=== PATIENT | male | born 1970 | race Caucasian/White ===

== ENCOUNTER 2017-10-12 12:54 | Emergency (ER) | payer SELFPAY ==
[2017-10-12 13:48] LABS: Basophils # (Auto) 0.1 K/mm3 (0.0-0.1); Basophils % (Auto) 0.9 % (0.0-1.8); Eosinophils # (Auto) 0.2 K/mm3 (0.0-0.4); Eosinophils % (Auto) 3.4 % (0.0-4.3); Hematocrit 43.3 % (35.5-45.6); Hemoglobin 14.7 gm/dl (11.8-15.2); Lymphocytes # (Auto) 1.9 K/mm3 (1.2-5.4); Lymphocytes % (Auto) 29.6 % (13.4-35.0); Mean Corpuscular HGB Conc 34 % (32-34); Mean Corpuscular Hemoglobin 33 pg (28-32); Mean Corpuscular Volume 98 fl (84-94); Monocytes # (Auto) 0.5 K/mm3 (0.0-0.8); Monocytes % (Auto) 6.9 % (0.0-7.3); Platelet Count 173 K/mm3 (140-440); Red Cell Distribution Width 13.9 % (13.2-15.2)
[2017-10-12 14:01] LABS: Calcium 9.5 mg/dL (8.4-10.2)
[2017-10-12] MEDS ORDERED: FIORICET PO ONE (18:09)
--- NOTE | 2017-10-12 18:16 | Emergency Department Report ---
HPI - General Chief Complaint: Psych Time Seen by Provider: 10/12/17 17:29 - HPI HPI: Room 16 The patient is a 46-year-old male presenting with a chief complaint of hallucinations and suicidal ideation. The patient states she has a history of psychosis depression and insomnia who has been off of all medications for one year. The patient states for several months he has had auditory and visual hallucinations but lately they have been worsening and becoming nonstop. The patient's auditory hallucinations includes sounds as well as voices to speak about suicidal thoughts. Patient states he has constantly had suicidal ideation but does not have an active plan. Patient denies actively attempting to hurt himself. The patient states his visual hallucinations includes things shape shifting. The patient states he's had a headache for 1 week Location: Mental status Duration: [See above] Quality: Suicidal Severity: Severe Modifying factors: [see above] Context: [see above] Mode of transportation: [not driving] ED Past Medical Hx - Past Medical History Previous Medical History?: No Hx Hypertension: Yes Hx Psychiatric Treatment: Yes (anxiety) Additional medical history: Myasthenia gravis - Surgical History Past Surgical History?: No Additional Surgical History: thymus gland, aortic valve replacement & mitral valve replacement (mechanical) - Family History Family history: no significant - Social History Smoking Status: Current Every Day Smoker (1/3 pack per day) Substance Use Type: Cocaine ED Review of Systems ROS: Stated complaint: HALLUCINATIONS Other details as noted in HPI Neurological: headache Psychiatric: auditory hallucinations, visual hallucinations, suicidal thoughts Physical Exam - Physical Exam Vital Signs: Vital Signs 10/12/17 10/12/17 13:14 14:30 Temperature 97.5 F L 98.0 F Pulse Rate 74 76 Respiratory 16 16 Rate Blood Pressure 121/72 105/66 O2 Sat by Pulse 96 98 Oximetry Physical Exam: GENERAL: The patient is well-developed well-nourished male lying on stretcher not appearing to be in acute distress. [] HEENT: Normocephalic. Atraumatic. Extraocular motions are intact. Patient has moist mucous membranes. NECK: Supple. No meningitic signs are noted. Trachea midline CHEST/LUNGS: Clear to auscultation. There is no respiratory distress noted. HEART/CARDIOVASCULAR: Regular. There is no tachycardia. There is no gallop rub or murmur. ABDOMEN: Abdomen is soft, nontender. Patient has normal bowel sounds. There is no abdominal distention. SKIN: There is no rash. There is no edema. There is no diaphoresis. NEURO: The patient is awake, alert, and oriented. The patient is cooperative. The patient has no focal neurologic deficits. The patient has normal speech. Cranial nerves II through XII grossly intact, no drift MUSCULOSKELETAL: There is no evidence of acute injury. ED Course Vital Signs 10/12/17 10/12/17 13:14 14:30 Temperature 97.5 F L 98.0 F Pulse Rate 74 76 Respiratory 16 16 Rate Blood Pressure 121/72 105/66 O2 Sat by Pulse 96 98 Oximetry ED Medical Decision Making - Lab Data Result diagrams: 10/12/17 13:22 10/12/17 13:22 Laboratory Tests 10/12/17 10/12/17 10/12/17 13:22 13:22 13:22 WBC RBC Hgb Hct MCV MCH MCHC RDW Plt Count Lymph % (Auto) Swift % (Auto) Eos % (Auto) Baso % (Auto) Lymph # Swift # Eos # Baso # Seg Neutrophils % Seg Neutrophils # Sodium 140 Potassium 4.6 Chloride 102.3 Carbon Dioxide 27 Anion Gap 15 BUN 15 Creatinine 1.4 Estimated GFR 54 BUN/Creatinine Ratio 11 Glucose 83 Calcium 9.5 Salicylates < 0.3 L Acetaminophen < 5.0 L Plasma/Serum Alcohol 10/12/17 10/12/17 13:22 13:22 WBC 6.6 RBC 4.40 Hgb 14.7 Hct 43.3 MCV 98 H MCH 33 H MCHC 34 RDW 13.9 Plt Count 173 Lymph % (Auto) 29.6 Swift % (Auto) 6.9 Eos % (Auto) 3.4 Baso % (Auto) 0.9 Lymph # 1.9 Swift # 0.5 Eos # 0.2 Baso # 0.1 Seg Neutrophils % 59.2 Seg Neutrophils # 3.9 Sodium Potassium Chloride Carbon Dioxide Anion Gap BUN Creatinine Estimated GFR BUN/Creatinine Ratio Glucose Calcium Salicylates Acetaminophen Plasma/Serum Alcohol < 0.01 - Radiology Data Radiology results: report reviewed (ct head), image reviewed (ct head) [facility] [address] [place] [address] Cat Scan Report Signed Patient: WILFRED LAMA MR#: [id number] : 1970 Acct:[id number] Age/Sex: 46 / M ADM Date: 10/12/17 Loc: ED Attending Dr: Ordering Physician: ANYA EUCEDA MD Date of Service: 10/12/17 Procedure(s): CT head/brain wo con Accession Number(s): [id number] cc: ANYA EUCEDA MD FINAL REPORT EXAM: CT HEAD/BRAIN WO CON HISTORY: headache TECHNIQUE: Standard unenhanced CT of the head at 5.0 millimeter axial increments. PRIORS: None. FINDINGS: The ventricular system is normal in size and configuration. There is no evidence for parenchymal volume loss. There is no evidence for mass lesion, mass effect, midline shift, acute intracranial hemorrhage, or acute ischemia/ infarction. No evidence for acute skull fracture is seen. No abnormality in the overlying scalp soft tissues is seen. Visualized paranasal sinuses are clear. IMPRESSION: Negative CT of the head. No acute intracranial process noted. Transcribed By: [facility] Dictated By: SHERRILL OCASIO MD Electronically Authenticated By: SHERRILL OCASIO MD Signed Date/Time: 10/12/171945 DD/ 45 TD/TT: 10/12/171945 - Differential Diagnosis suicidal ideation, Critical care attestation.: If time is entered above; I have spent that time in minutes in the direct care of this critically ill patient, excluding procedure time. ED Disposition Clinical Impression: Suicidal ideation, Auditory hallucinations Disposition: DC/TX-65 PSY HOSP/PSY UNIT Is pt being admited?: No Does the pt Need Aspirin: No Condition: Stable Referrals: PRIMARY CAREMD [Primary Care Provider] - 3-5 Days Time of Disposition: 19:57 (awaiting acceptence)
--- NOTE | 2017-10-12 19:54 | Cat Scan Report ---
FINAL REPORT EXAM: CT HEAD/BRAIN WO CON HISTORY: headache TECHNIQUE: Standard unenhanced CT of the head at 5.0 millimeter axial increments. PRIORS: None. FINDINGS: The ventricular system is normal in size and configuration. There is no evidence for parenchymal volume loss. There is no evidence for mass lesion, mass effect, midline shift, acute intracranial hemorrhage, or acute ischemia/ infarction. No evidence for acute skull fracture is seen. No abnormality in the overlying scalp soft tissues is seen. Visualized paranasal sinuses are clear. IMPRESSION: Negative CT of the head. No acute intracranial process noted.
[2017-10-13 08:08] LABS: Bilirubin,Urine NEG (Negative); Blood,Urine NEG (Negative); Color,Urine Straw (Yellow); Mucus,Urine FEW /HPF; Protein,Urine <15 mg/dL mg/dL (Negative); Urobilinogen,Urine < 2.0 mg/dL (<2.0); WBC,Urine < 1.0 /HPF (0.0-6.0)
[2017-10-13 08:18] LABS: Amphetamine Screen,Urine PRESUMPTIVE NEGATIVE; Benzodiazepines Screen,Urine PRESUMPTIVE NEGATIVE; Cannabinoid Screen,Urine PRESUMPTIVE NEGATIVE; Methadone Screen,Urine PRESUMPTIVE NEGATIVE; Opiate Screen,Urine PRESUMPTIVE NEGATIVE
[2017-10-13 08:30] LABS: Cocaine Screen,Urine PRESUMPTIVE POSITIVE
--- NOTE | 2017-10-13 14:58 | Consultation ---
History of Present Illness - Reason for Consult Reason for consult: suicidal thoughts, VH - History of Present Psychiatric Illness This is a 46-year-old male with a past psychiatric history of unspecified mood disorder now presenting secondary to recent expression of visual hallucinations as well as suicidal thoughts. Exacerbating situation appears to be ongoing homelessness. Patient currently reports severe anxiety assessment worsening, ruminative thoughts with auditory and visual hallucinations. Patient also has comorbid suicidal thoughts. Past psychiatric history: Patient gets outpatient care at the [facility] Patient was hospitalized at [facility] several years ago Current medications: Elavil and Seroquel, last use over a year ago. Medical history significant for cardiovascular surgical procedure No current drug allergies noted Social history: Patient is currently homeless and has no source of income. Patient has housing voucher from [facility], but was kicked out of his home in January of last year. At the current time he notes that his housing voucher still active and he is able to get housing with some supportive services from home health care case manager if possible. Patient currently abuses cocaine on a daily basis and relapsed last December. 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 On mental status examination, this 46-year-old male who comment in hospital bed dressed in hospital gown with sheets over his body. Patient appears mildly disheveled unshaven unkempt. Not malodorous. Limited eye contact withdrawn and oppositional. Sensorium was mildly distracted. Psychomotorically he was mildly retarded without any instability indicated. Mood appeared apprehensive and irritable, with affect that was congruent. Speech language was slow soft clear coherent. Thought process was logical goal directed without loose associations. Thought content was preoccupied and impoverished with reports of auditory as well as visual hallucinations and suicidal thoughts. No homicidal thoughts noted. Oriented to person place time and situation. Consultation attention impaired. Memory intact. Insight judgment limited and impulsive. ADLs independent. Assessment: Substance-induced psychotic disorder Substance-induced mood disorder Cocaine abuse Unspecified episodic mood disorder Rule out bipolar disorder Plan: Start Seroquel logical milligrams at bedtime Start Elavil 50 mg at bedtime Maintain on 1013 Refer for inpatient psychiatric hospitalization for further assessment and treatment Involve case management services if possible to help with housing in the event that the patient improves while in the hospital and requires housing placement Medications and Allergies Allergies Allergy/AdvReac Type Severity Reaction Status Date / Time No Known Allergies Allergy Verified 10/12/17 13:14 Home Medications Medication Instructions Recorded Confirmed Last Taken Type Unobtainable 10/12/17 10/12/17 Unknown History Mental Status Exam - Vital signs Last Vital Signs Temp 98 F 10/13/17 07:56 Pulse 66 10/13/17 14:35 Resp 18 10/13/17 07:56 BP 118/63 10/13/17 14:35 Pulse Ox 98 10/13/17 07:56 Results Result Diagrams: 10/12/17 13:22 10/12/17 13:22 All other labs normal.
[2017-10-13] MEDS ORDERED: TYLENOL ONE (17:24)
[2017-10-13] MEDS ORDERED: TYLENOL PO ONE (17:29)
[2017-10-13] MEDS: ELAVIL PO SCH (22:48)
--- NOTE | 2017-10-14 11:23 | Progress Note ---
Subjective - Reason for Consult Consult date: 10/14/17 Reason for consult: Psychiatry Follow-up - Chief Complaint Chief complaint: "I am fine" 46-year-old male with a past psychiatric history of unspecified mood disorder now presenting secondary to recent expression of visual hallucinations as well as suicidal thoughts. Today the patient is calm, but vague during the assessment. He stated feeling better since he is taking his medications. He would not answer several questions asked of him other than saying I'm fine. He denies SI/HI's and AVH's. No indications of side effects of his medications. Mental Status Exam - Vital signs Last Vital Signs Temp 97.5 F L 10/14/17 10:00 Pulse 70 10/13/17 22:00 Resp 18 10/14/17 10:00 BP 111/65 10/13/17 22:00 Pulse Ox 99 10/14/17 10:00 - Exam Narrative exam: MSE: Appearance: calm, but vague Behavior: poor eye contact (head covered by bed sheets) Speech: regular rate and tone Mood: "okay" Affect: unable to assess Thought Process: unable to assess Thought Content: denies SI/HI's and AVH's Motor Activity: sitting up in bed Cognition: A/O x 3 Insight: unable to assess Judgment: unable to assess Assessment and Plan Impression: Substance-induced psychotic DO. Substance-induced mood DO. Unspecified episodic mood DO. Today the patient is calm, but vague during the assessment. DDx: R/O Bipolar DO Recommendation/Plan: Continue 1013 with placement to inpatient psy services. Continue home medications Seroquel 100 mg PO HS and Elavil 50 mg PO HS. Discussed possible metabolic side effects of Seroquel with patient. Also, discussed suicidality/medication induced ariane with patient reference Elavil.
[2017-10-14] MEDS: ELAVIL PO SCH (22:22)
--- NOTE | 2017-10-15 13:15 | Progress Note ---
Subjective - Reason for Consult Consult date: 10/15/17 Reason for consult: Psychiatry Follow-up - Chief Complaint Chief complaint: "I feel better" 46-year-old male with a past psychiatric history of unspecified mood disorder now presenting secondary to recent expression of visual hallucinations as well as suicidal thoughts. Today the patient is calm and cooperative during the assessment. The patient was more engaging today. He stated that the voices are still active in his ear. He stated that he would like the voices to "cease. He stated that he is a patient at [facility]. He denies SI/HI's and VH's. He denies any side effects of his medications. Mental Status Exam - Vital signs Last Vital Signs Temp 98.6 F 10/14/17 22:00 Pulse 98 H 10/14/17 22:00 Resp 18 10/14/17 22:00 BP 96/60 10/14/17 22:00 Pulse Ox 100 10/14/17 22:00 - Exam Narrative exam: MSE: Appearance: calm, cooperative Behavior: regular eye contact Speech: regular rate and tone Mood: "okay" Affect: congruent to mood Thought Process: logical Thought Content: denies SI/HI's and VH's Motor Activity: sitting up in bed Cognition: A/O x 3 Insight: fair Judgment: fair Assessment and Plan Impression: Substance-induced psychotic DO. Substance-induced mood DO. Unspecified episodic mood DO. Today the patient is calm and cooperative during the assessment. DDx: R/O Bipolar DO Recommendation/Plan: Reevaluate the 1013 in 24 hours to determine proper dispo. Increase Seroquel to 200 mg PO HS and Elavil 50 mg PO HS. Discussed possible metabolic side effects of Seroquel with patient. Also, discussed suicidality/ medication induced ariane with patient reference Elavil.
[2017-10-15] MEDS: ELAVIL PO SCH (23:12)
[2017-10-16 09:20] VITALS: BP 111/63
--- NOTE | 2017-10-16 10:17 | Progress Note ---
Subjective - Reason for Consult Consult date: 10/16/17 Reason for consult: Psychaitry Follow-up - Chief Complaint Chief complaint: "How are you" 46-year-old male with a past psychiatric history of unspecified mood disorder now presenting secondary to recent expression of visual hallucinations as well as suicidal thoughts. Today the patient is calm and cooperative during the assessment. He stated that he look forward to being discharged. He stated that he can follow up with [facility] for outpatient psy services. He denies SI/ HI's and AVH's. He denies any side effects of his medications. Mental Status Exam - Vital signs Last Vital Signs Temp 97.8 F 10/16/17 09:19 Pulse 65 10/16/17 09:19 Resp 16 10/16/17 09:19 BP 111/63 10/16/17 09:19 Pulse Ox 100 10/16/17 09:19 - Exam Narrative exam: MSE: Appearance: calm, cooperative Behavior: regular eye contact Speech: regular rate and tone Mood: "okay" Affect: congruent to mood Thought Process: logical Thought Content: denies SI/HI's and VH's Motor Activity: sitting up in bed Cognition: A/O x 3 Insight: appropriate Judgment: appropriate Assessment and Plan Impression: Substance-induced psychotic DO. Substance-induced mood DO. Unspecified episodic mood DO. Today the patient is calm and cooperative during the assessment. DDx: R/O Bipolar DO Recommendation/Plan: Rescind 1013. Continue Seroquel 200 mg PO HS and Elavil 50 mg PO HS. Discussed possible metabolic side effects of Seroquel with patient. Also, discussed suicidality/medication induced ariane with patient reference Elavil. Discussed generalized coping skills with patient. Discussed the importance to abstain from recreational drug use. The patient can follow up with [facility]. Case Mgmt involvement, the patient may need assistance with placement.
== END 2017-10-16 11:36 ==
LOC: ED 12:54 → EEVIPCON 12:54 → ED 10-16 11:36
DX: R45.851 Suicidal ideations (principal); R44.0 Auditory hallucinations; I10 Essential (primary) hypertension; F17.210 Nicotine dependence, cigarettes, uncomplicated; F14.90 Cocaine use, unspecified, uncomplicated; F41.9 Anxiety disorder, unspecified
CPT/HCPCS: 36415; 70450; 80048; 80307; 81001; 85025; 93005; 93010; 99284; G0480; 80320